=== PATIENT | male | born 1950 | race Caucasian/White ===

== ENCOUNTER 2017-01-10 15:30 | Emergency (ER) | payer BC ==
[2017-01-10 15:35] VITALS: BP 155/89; PULSE 65; RESP 16; TEMP 98.2; O2SAT 98
--- NOTE | 2017-01-10 15:48 | EDPHY ---
H & P Stated Complaint: fish hook in R fifth finger Time Seen by Provider: 01/10/17 15:38 HPI/ROS: CHIEF COMPLAINT: [place] in finger HISTORY OF PRESENT ILLNESS: Patient is a 66-year-old man who comes to emergency department complaining of a puncture wound to left little finger he sustained by a fishhook just prior to arrival. The jayy is in his finger. He denies other injuries. Does not through and through. It does not involve the nail bed feet it is over the fat pad of the distal phalanx. REVIEW OF SYSTEMS: Constitutional: denies: chills, fever, recent illness, recent injury EENTM: denies: blurred vision, double vision, nose congestion Respiratory: denies: cough, shortness of breath Cardiac: denies: chest pain, irregular heart rate, lightheadedness, palpitations Gastrointestinal/Abdominal: denies: abdominal pain, diarrhea, nausea, vomiting, blood streaked stools Genitourinary: denies: dysuria, frequency, hematuria, pain Musculoskeletal: denies: joint pain, muscle pain Skin: See HPI Neurological: denies: headache, numbness, paresthesia, tingling, dizziness, weakness Hematologic/Lymphatic: denies: blood clots, easy bleeding, easy bruising Immunologic/allergic: denies: HIV/AIDS, transplant EXAM: GENERAL: Well-appearing, well-nourished and in no acute distress. HEAD: Atraumatic, normocephalic. EYES: Pupils equal round and reactive to light, extraocular movements intact, sclera anicteric, conjunctiva are normal. ENT: TMs normal, nares patent, oropharynx clear without exudates. Moist mucous membranes. NECK: Normal range of motion, supple without lymphadenopathy or JVD. LUNGS: Breath sounds clear to auscultation bilaterally and equal. No wheezes rales or rhonchi. HEART: Regular rate and rhythm without murmurs, rubs or gallops. ABDOMEN: Soft, nontender, normoactive bowel sounds. No guarding, no rebound. No masses appreciated. BACK: No CVA tenderness, no spinal tenderness, step-offs or deformities EXTREMITIES: [place] puncture into the distal phalanx of the is right 5th finger. Into the fat pad. Normal function and capillary refill. Normal range of motion, no pitting or edema. No clubbing or cyanosis. NEUROLOGICAL: Cranial nerves II through XII grossly intact. Normal speech, normal gait. 5/5 strength, normal movement in all extremities, normal sensation PSYCH: Normal mood, normal affect. SKIN: Warm, dry, normal turgor, no visible rashes or lesions. Source: Patient Exam Limitations: No limitations - Personal History Current Tetanus/Diphtheria Vaccine: Yes Current Tetanus Diphtheria and Acellular Pertussis (TDAP): Yes Tetanus Vaccine Date: 2012 - Medical/Surgical History Hx Asthma: No Hx Chronic Respiratory Disease: No Hx Diabetes: No Hx Cardiac Disease: No Hx Renal Disease: No Hx Cirrhosis: No Hx Alcoholism: No Hx HIV/AIDS: No Hx Splenectomy or Spleen Trauma: No Other PMH: htn - Family History Significant Family History: No pertinent family hx - Social History Smoking Status: Never smoked Alcohol Use: Sober Drug Use: None Constitutional: Initial Vital Signs Temperature (C) 36.8 C 01/10/17 15:33 Heart Rate 65 01/10/17 15:33 Respiratory Rate 16 01/10/17 15:33 Blood Pressure 155/89 H 01/10/17 15:33 O2 Sat (%) 98 01/10/17 15:33 O2 Delivery Mode Room Air Allergies/Adverse Reactions: No Known Allergies Allergy (Unverified 01/10/17 15:33) Home Medications: Medication Instructions Recorded Losartan Potassium 01/10/17 Tramadol HCl 01/10/17 Medical Decision Making Procedures: [place] removal: The patient's finger was anesthetized with bupivacaine in a digital block. Under sterile conditions an 18 gauge needle was used to cover the jayy and the hook was removed. The patient tolerated the procedure well. The wound was then cleaned and dressed with antibiotic ointment and dressings. ED Course/Re-evaluation: Patient tolerated the procedure well. He is grateful. He declines further workup or testing. - Data Points Laboratory Results: Partial list of the Differential diagnosis considered include but were not limited to; puncture wound, foreign body and although unlikely based on the history and physical exam, I also considered fracture, nerve injury, vascular injury. I discussed these differential diagnoses and the plan with the patient as well as the usual and expected course. The patient understands that the diagnosis is provisional and that in medicine we are not always correct and that further workup is often warranted. Usual and customary warnings were given. All of the patient's questions were answered. The patient was instructed to return to the emergency department should the symptoms at all worsen or return, otherwise to followup with the physician as we discussed. Departure - Departure Disposition: Home, Routine, Self-Care Clinical Impression: [place] injury to finger Qualifiers: Encounter type: initial encounter Laterality: right Qualified Code(s): S69.91XA - Unspecified injury of right wrist, hand and finger(s), initial encounter Condition: Fair Instructions: Puncture Wound (ED) Referrals: DARIUS THORPE [Other] - As per Instructions
[2017-01-10] MEDS ORDERED: TDAP ADULT 0.5 ML INJ (BOOSTRIX) IM ONE (16:06)
== END 2017-01-10 16:20 | disposition home or self-care (01) ==
PROC: 3E0T3BZ Introduction of Anesthetic Agent into Peripheral Nerves and Plexi, Percutaneous Approach (ICD-10-PCS; principal; 2017-01-10)
DX: S61.237A Puncture wound without foreign body of left little finger without damage to nail, initial encounter (principal); I10 Essential (primary) hypertension; Z23 Encounter for immunization; X58.XXXA Exposure to other specified factors, initial encounter

== ENCOUNTER 2017-03-05 11:17 | Emergency (ER) | payer BC ==
[2017-03-05 11:21] VITALS: RESP 16; TEMP 98.1; O2SAT 97
--- NOTE | 2017-03-05 11:30 | EDPHY ---
H & P Stated Complaint: Chest pressure, SOB ~ 1 wk Time Seen by Provider: 03/05/17 11:30 HPI/ROS: CHIEF COMPLAINT: Lower chest pressure, occasional dyspnea, fatigue, upper abdominal pain HISTORY OF PRESENT ILLNESS: The patient presents the ED with complaints of lower chest pressure, occasional dyspnea, fatigue and upper abdominal pain. The patient has been dealing with the symptoms for several months. He 1st began experiencing them while living in [place]. At that point time he reportedly had a stress test, nuclear stress test, extensive laboratory testing and gallbladder ultrasound all of which were negative. The patient was treated with Protonix for a short period of time which he stopped taking. He attributed his symptoms to stress. The patient reportedly retired from his job that and subsequently has moved to [place]. He has continued to deal with the symptoms episodically. He has attributed them to possible altitude affect. After a slightly worse acute exacerbation over the past week he decided to seek care today. The patient currently complains of a lower chest discomfort which is bilateral in nature. The patient complains of mild dyspnea which is not pleuritic. He denies asymmetric calf pain or swelling. The patient denies any history of exertional chest pain or shortness of breath. The patient denies additional acute complaints. The patient does have a history of hypertension. REVIEW OF SYSTEMS: A comprehensive 10 point review of systems is otherwise negative aside from elements mentioned in the history of present illness. - Personal History Current Tetanus Diphtheria and Acellular Pertussis (TDAP): Yes Tetanus Vaccine Date: 2012 - Medical/Surgical History Hx Asthma: No Hx Chronic Respiratory Disease: No Hx Diabetes: No Hx Cardiac Disease: No Hx Renal Disease: No Hx Cirrhosis: No Hx Alcoholism: No Hx HIV/AIDS: No Hx Splenectomy or Spleen Trauma: No Other PMH: HTN - Social History Smoking Status: Never smoked - Physical Exam Exam: General Appearance: Alert, no distress Eyes: Pupils equal and round no pallor or injection ENT, Mouth: Mucous membranes moist Respiratory: There are no retractions, lungs are clear to auscultation Cardiovascular: Regular rate and rhythm Gastrointestinal: Abdomen is soft and nontender, no masses, bowel sounds normal Neurological: A&O, normal motor function, normal sensory exam, normal cranial nerves Skin: Warm and dry, no rashes Musculoskeletal: Neck is supple nontender Extremities: symmetrical, full range of motion Constitutional: Initial Vital Signs Temperature (C) 36.7 C 03/05/17 11:18 Heart Rate 57 L 03/05/17 11:18 Respiratory Rate 16 03/05/17 11:18 Blood Pressure 162/98 H 03/05/17 11:18 O2 Sat (%) 97 03/05/17 11:18 O2 Delivery Mode Room Air Allergies/Adverse Reactions: No Known Allergies Allergy (Unverified 01/10/17 15:33) Home Medications: Medication Instructions Recorded Losartan Potassium 01/10/17 TESTOSTERONE [Androgel 1.62% pump] 03/05/17 Medical Decision Making - Diagnostics EKG Interpretation: EKG: Complete interpretation has been separately recorded in the [employer] archive. Summary impression: Sinus rhythm, rate 53 Imaging Results: Imaging Impressions Chest X-Ray 03/05/17 11:55 Impression: Possible airways disease. No evidence for cardiac decompensation. ED Course/Re-evaluation: The patient presents to the emergency department with several symptoms including lower chest discomfort, upper abdominal discomfort, mild dyspnea and lightheadedness. The patient has had these symptoms occurring intermittently for the past several months. The patient has had fairly extensive workup today including a unremarkable gallbladder ultrasound, a treadmill stress test and nuclear stress test by his report. The patient had mildly worsening symptoms today. The patient has no risk factors for coronary artery disease. The patient has no risk factors for thromboembolic disease. The patient's D-dimer test is negative which I feel adequately excludes pulmonary embolism. The patient's EKG and troponin continued to be normal. The patient was noted to have a slightly elevated creatinine of 2.1. I have referred the patient to our on-call data analytics analyst for further evaluation of this condition. The patient tells me this has been elevated in the past he is uncertain what his baseline is. He will contact his regular primary care provider in [place] to follow up on this today. At this point time I do feel the patient can be discharged home. My clinical suspicion for acute coronary syndrome is low. Given at the patient has had a negative nuclear stress test within the past several months I feel it is reasonable to have him follow up with Cardiology as an outpatient. The patient has been instructed to return to the ED for markedly worsening symptoms or other concerns. Differential Diagnosis: Differential diagnosis considered includes arrhythmia, pulmonary embolism, metabolic abnormality, myocardial infarction, pneumonia, pneumothorax - Data Points Laboratory Results: Laboratory Results 03/05/17 11:35 03/05/17 11:35 03/05/17 03/05/17 03/05/17 11:35 11:35 11:35 WBC 7.18 10^3/uL 10^3/uL (3.80-9.50) RBC 5.49 10^6/uL 10^6/uL (4.40-6.38) Hgb 13.7 g/dL g/dL (13.7-17.5) Hct 42.4 % % (40.0-51.0) MCV 77.2 fL L fL (81.5-99.8) MCH 25.0 pg L pg (27.9-34.1) MCHC 32.3 g/dL L g/dL (32.4-36.7) RDW 15.8 % H % (11.5-15.2) Plt Count 237 10^3/uL 10^3/uL (150-400) MPV 9.7 fL fL (8.7-11.7) Neut % (Auto) 64.6 % % (39.3-74.2) Lymph % (Auto) 24.7 % % (15.0-45.0) [place] % (Auto) 9.2 % % (4.5-13.0) Eos % (Auto) 0.6 % % (0.6-7.6) Baso % (Auto) 0.8 % % (0.3-1.7) Nucleat RBC Rel Count 0.0 % % (0.0-0.2) Absolute Neuts (auto) 4.64 10^3/uL 10^3/uL (1.70-6.50) Absolute Lymphs (auto) 1.77 10^3/uL 10^3/uL (1.00-3.00) Absolute Monos (auto) 0.66 10^3/uL 10^3/uL (0.30-0.80) Absolute Eos (auto) 0.04 10^3/uL 10^3/uL (0.03-0.40) Absolute Basos (auto) 0.06 10^3/uL 10^3/uL (0.02-0.10) Absolute Nucleated RBC 0.00 10^3/uL 10^3/uL (0-0.01) Immature Gran % 0.1 % % (0.0-1.1) Immature Gran # 0.01 10^3/uL 10^3/uL (0.00-0.10) D-Dimer 0.41 ug/mLFEU ug/mLFEU (0.00-0.50) Sodium 136 mEq/L mEq/L (134-144) Potassium 3.7 mEq/L mEq/L (3.5-5.2) Chloride 101 mEq/L mEq/L (97-110) Carbon Dioxide 25 mEq/l mEq/l (22-31) Anion Gap 10 mEq/L mEq/L (8-16) BUN 18 mg/dL mg/dL (7-23) Creatinine 2.1 mg/dL H mg/dL (0.7-1.3) Estimated GFR 32 Glucose 94 mg/dL mg/dL (70-100) Calcium 9.2 mg/dL mg/dL (8.5-10.4) Troponin I < 0.012 ng/mL ng/mL (0.000-0.034) Departure - Departure Disposition: Home, Routine, Self-Care Clinical Impression: Chest pain, Elevated serum creatinine Condition: Good Instructions: Chest Pain (ED) Additional Instructions: 1. Please follow up with the primary care provider you have been referred to. 2. Your creatinine which is a measure of your kidney function is abnormal. It is 2.1. Please review with your previous primary medical provider at this is a old condition. In the event that it is new, I recommend following up with Nephrology within the next week. You have been referred to Dr. Viraj Mann to schedule this appointment with. 3. Please follow up with the sales service coordinator you have been referred to for further evaluation of any ongoing symptoms. Your workup in the emergency department today demonstrates no evidence of a heart attack, blood clot or pneumonia. Referrals: Homero Dooley MD [Medical Doctor] - As per Instructions Viraj Mann MD [Medical Doctor] - As per Instructions Ramírez Long MD [Medical Doctor] - As per Instructions
--- NOTE | 2017-03-05 11:30 | CPEKG ---
Heart Rate: 53 RR Interval: 1132 P-R Interval: 204 QRSD Interval: 98 QT Interval: 408 QTC Interval: 383 P [place]: 50 QRS [place]: 60 T Wave [place]: 59 EKG Severity - NORMAL ECG - EKG Impression: SINUS RHYTHM Electronically Signed By: Anupam Madrid 05-Mar-2017 13:55:25
[2017-03-05 11:42] LABS: % IMMATURE GRANULYOCYTES 0.1 % (0.0-1.1); ABSOLUTE IMMATURE GRANULOCYTES 0.01 10^3/uL (0.00-0.10); ADD DIFF? NO; ADD MORPH? NO; ADD SCAN? NO; ATYPICAL LYMPHOCYTE FLAG 10 (0-99); FRAGMENT RBC FLAG 0 (0-99); HEMATOCRIT 42.4 % (40.0-51.0); HEMOGLOBIN 13.7 g/dL (13.7-17.5); LEFT SHIFT FLG 0 (0-99); LIPEMIA HEMOLYSIS FLAG 80 (0-99); MEAN CELL HEMOGLOBIN CONCENTR. 32.3 g/dL (32.4-36.7); MEAN CELL VOLUME 77.2 fL (81.5-99.8); MEAN PLATELET VOLUME 9.7 fL (8.7-11.7); PLATELET CLUMPS FLAG 0 (0-99); PLATELET COUNT 237 10^3/uL (150-400); RED BLOOD CELL COUNT 5.49 10^6/uL (4.40-6.38); RED CELL DISTRIBUTION WIDTH 15.8 % (11.5-15.2)
[2017-03-05 11:52] LABS: ANION GAP 10 mEq/L (8-16); CALCIUM 9.2 mg/dL (8.5-10.4); CARBON DIOXIDE 25 mEq/l (22-31); CHLORIDE 101 mEq/L (97-110); GLUCOSE 94 mg/dL (70-100); POTASSIUM 3.7 mEq/L (3.5-5.2); SODIUM 136 mEq/L (134-144)
[2017-03-05 11:58] LABS: CREATININE 2.1 mg/dL (0.7-1.3); GLOMERULAR FILTRATION RATE 32
[2017-03-05 12:03] LABS: TROPONIN I < 0.012 ng/mL (0.000-0.034)
[2017-03-05 14:17] VITALS: BP 132/77; PULSE 54
== END 2017-03-05 14:17 | disposition home or self-care (01) ==
DX: R07.9 Chest pain, unspecified (principal); R79.89 Other specified abnormal findings of blood chemistry; I10 Essential (primary) hypertension

== ENCOUNTER 2017-05-27 19:00 | Emergency (ER) | payer BC ==
--- NOTE | 2017-05-27 19:03 | EDPHY ---
H & P Time Seen by Provider: 05/27/17 19:02 HPI/ROS: CHIEF COMPLAINT: Headache, dyspnea HISTORY OF PRESENT ILLNESS: The patient presents to the ED after he developed an acute headache and mild dyspnea after using cocaine at 1 o'clock this afternoon. The patient reports he uses this drug sporadically every 3 months. The patient does have a history of hypertension. The patient denies any focal numbness or weakness. The patient denies acute chest pain. The patient did call paramedics because he was feeling poorly. He was given Valium prior to arrival , and is now feeling somewhat somnolent. He states his dyspnea has improved. He currently complains of a 6/10 headache. The patient was in the emergency department for evaluation of chest pain and shortness of breath in February of this year. At that point time he had a nonischemic EKG. The patient reported to me he has had a nuclear stress test which was negative within the past year. REVIEW OF SYSTEMS: A comprehensive 10 point review of systems is otherwise negative aside from elements mentioned in the history of present illness. Source: Patient Exam Limitations: No limitations - Personal History Tetanus Vaccine Date: 2012 - Medical/Surgical History Hx Asthma: No Hx Chronic Respiratory Disease: No Hx Diabetes: No Hx Cardiac Disease: No Hx Renal Disease: No Hx Cirrhosis: No Hx Alcoholism: No Hx HIV/AIDS: No Hx Splenectomy or Spleen Trauma: No Other PMH: HTN - Social History Smoking Status: Never smoked - Physical Exam Exam: General Appearance: Alert, no distress Eyes: Pupils equal and round no pallor or injection ENT, Mouth: Mucous membranes moist Respiratory: There are no retractions, lungs are clear to auscultation Cardiovascular: Regular rate and rhythm Gastrointestinal: Abdomen is soft and nontender, no masses, bowel sounds normal Neurological: A&O, normal motor function, normal sensory exam, normal cranial nerves Skin: Warm and dry, no rashes Musculoskeletal: Neck is supple nontender Extremities: symmetrical, full range of motion Constitutional: Initial Vital Signs Temperature (C) 36.6 C 05/27/17 19:03 Heart Rate 68 05/27/17 19:03 Respiratory Rate 12 05/27/17 19:03 Blood Pressure 143/87 H 05/27/17 19:03 O2 Sat (%) 91 L 05/27/17 19:03 O2 Delivery Mode Room Air O2 (L/minute) 2 Allergies/Adverse Reactions: No Known Allergies Allergy (Verified 05/27/17 19:08) Home Medications: Medication Instructions Recorded Losartan Potassium 01/10/17 TESTOSTERONE [Androgel 1.62% pump] 03/05/17 Prilosec 05/27/17 Xanax 05/27/17 amLODIPine/ATORVASTATIN 05/27/17 Medical Decision Making - Diagnostics EKG Interpretation: EKG: Complete interpretation has been separately recorded in the [employer] archive. Summary impression: Sinus rhythm, rate 64 Imaging Results: Imaging Impressions Chest X-Ray 05/27/17 19:03 Impression: 1. Decreased inspiration with compressive changes at the lung bases more prominent on the left. Rule out developing infiltrate or aspiration left lower lobe. Head CT 05/27/17 19:40 Impression: There is no acute intracranial abnormality identified on this unenhanced CT evaluation. If there is further clinical concern regarding the patient's symptoms, MR imaging is suggested, if not otherwise contraindicated. Findings were discussed with Aliya Faust PA-C, who will convey the information to Anupam Madrid MD at 20:49, on 05/27/2017. ED Course/Re-evaluation: The patient presents to the ED with complaints of a 6/10 headache after using cocaine earlier today. The patient did report mild associated shortness of breath. The patient was noted to be normotensive upon arrival. His initial EKG demonstrates no acute ischemic changes. The patient's chest x-ray demonstrates some atelectasis at the lung base. The patient was taken for a noncontrast head CT scan given his complaints of acute headache which demonstrated no evidence of intracranial hemorrhage. I re-evaluated the patient at 9:20 p.m.. The patient tells me his headache has resolved however he has developed a very vague 2/10 chest pressure. Repeat EKG is also been ordered. Repeat EKG demonstrates no ongoing ST segment changes. I re-evaluated the patient at 10:00 p.m.. He is currently pain-free. The patient has been under the care of Dr. Willson from Cardiology. The patient would like to be discharged home. He was offered admission to the hospital in the setting of his cocaine induced chest pain. He does understand return to the ED immediately for any recurrent chest pain, difficulty breathing or other concerns. All the patient's chest x-ray acquired the possibility of pneumonia he has no clinical symptoms consistent with this. The patient will be discharged and instructed to follow up with his regular report clerk. The patient is quite concrete that he plans never to use cocaine again. He denies any suicidal or homicidal ideation. He denies any symptoms of ongoing anxiety or dyspnea. The patient denies any symptoms of an acute headache and is noted to have a normal neurologic exam. Differential Diagnosis: Differential diagnosis considered includes intracranial hemorrhage, congestive heart failure, myocardial infarction - Data Points Laboratory Results: Laboratory Results 05/27/17 19:27 05/27/17 19:27 05/27/17 05/27/17 19:27 19:27 WBC 8.88 10^3/uL 10^3/uL (3.80-9.50) RBC 5.71 10^6/uL 10^6/uL (4.40-6.38) Hgb 13.3 g/dL L g/dL (13.7-17.5) Hct 42.2 % % (40.0-51.0) MCV 73.9 fL L fL (81.5-99.8) MCH 23.3 pg L pg (27.9-34.1) MCHC 31.5 g/dL L g/dL (32.4-36.7) RDW 18.9 % H % (11.5-15.2) Plt Count 241 10^3/uL 10^3/uL (150-400) MPV 10.5 fL fL (8.7-11.7) Neut % (Auto) 76.0 % H % (39.3-74.2) Lymph % (Auto) 14.6 % L % (15.0-45.0) [place] % (Auto) 8.7 % % (4.5-13.0) Eos % (Auto) 0.0 % L % (0.6-7.6) Baso % (Auto) 0.5 % % (0.3-1.7) Nucleat RBC Rel Count 0.0 % % (0.0-0.2) Absolute Neuts (auto) 6.75 10^3/uL H 10^3/uL (1.70-6.50) Absolute Lymphs (auto) 1.30 10^3/uL 10^3/uL (1.00-3.00) Absolute Monos (auto) 0.77 10^3/uL 10^3/uL (0.30-0.80) Absolute Eos (auto) 0.00 10^3/uL L 10^3/uL (0.03-0.40) Absolute Basos (auto) 0.04 10^3/uL 10^3/uL (0.02-0.10) Absolute Nucleated RBC 0.00 10^3/uL 10^3/uL (0-0.01) Immature Gran % 0.2 % % (0.0-1.1) Immature Gran # 0.02 10^3/uL 10^3/uL (0.00-0.10) Sodium 139 mEq/L mEq/L (134-144) Potassium 3.9 mEq/L mEq/L (3.5-5.2) Chloride 102 mEq/L mEq/L (97-110) Carbon Dioxide 23 mEq/l mEq/l (22-31) Anion Gap 14 mEq/L mEq/L (8-16) BUN 16 mg/dL mg/dL (7-23) Creatinine 1.4 mg/dL H mg/dL (0.7-1.3) Estimated GFR 51 Glucose 134 mg/dL H mg/dL (70-100) Calcium 9.2 mg/dL mg/dL (8.5-10.4) Troponin I < 0.012 ng/mL ng/mL (0.000-0.034) Departure - Departure Disposition: Home, Routine, Self-Care Clinical Impression: Shortness of breath, Headache, Chest pain Condition: Good Instructions: Chest Pain (ED) Additional Instructions: 1. Based upon the testing done in the Emergency Department today we see no evidence of a heart attack. 2. We are unable to fully exclude coronary artery disease based upon the testing available in the Emergency Department. 3. For this reason, we would like you to be seen by cardiology for consideration of additional testing within the next 3 days. 4. Please contact the report clerk you have been referred to schedule this appointment as soon as possible. Their offices are typically open from 8:30am- 5pm M-F. 5. Please return to the Emergency Department immediately for any recurrent chest pain, difficulty breathing or other concerns. Referrals: Krystle Willson MD [Medical Doctor] - As per Instructions
--- NOTE | 2017-05-27 19:21 | CPEKG ---
Heart Rate: 64 RR Interval: 938 P-R Interval: 200 QRSD Interval: 96 QT Interval: 404 QTC Interval: 417 P [place]: 26 QRS [place]: 14 T Wave [place]: 28 EKG Severity - ABNORMAL ECG - EKG Impression: SINUS RHYTHM EKG Impression: LEFT ATRIAL ABNORMALITY Electronically Signed By: Anupam Madrid 27-May-2017 20:08:25
[2017-05-27 19:39] LABS: % IMMATURE GRANULYOCYTES 0.2 % (0.0-1.1); ABSOLUTE IMMATURE GRANULOCYTES 0.02 10^3/uL (0.00-0.10); ADD DIFF? NO; ADD MORPH? NO; ADD SCAN? NO; ATYPICAL LYMPHOCYTE FLAG 0 (0-99); FRAGMENT RBC FLAG 20 (0-99); HEMATOCRIT 42.2 % (40.0-51.0); HEMOGLOBIN 13.3 g/dL (13.7-17.5); LEFT SHIFT FLG 0 (0-99); LIPEMIA HEMOLYSIS FLAG 80 (0-99); MEAN CELL HEMOGLOBIN 23.3 pg (27.9-34.1); MEAN CELL HEMOGLOBIN CONCENTR. 31.5 g/dL (32.4-36.7); MEAN CELL VOLUME 73.9 fL (81.5-99.8); MEAN PLATELET VOLUME 10.5 fL (8.7-11.7); PLATELET CLUMPS FLAG 10 (0-99); PLATELET COUNT 241 10^3/uL (150-400); RED BLOOD CELL COUNT 5.71 10^6/uL (4.40-6.38); RED CELL DISTRIBUTION WIDTH 18.9 % (11.5-15.2)
[2017-05-27 19:48] LABS: ANION GAP 14 mEq/L (8-16); CALCIUM 9.2 mg/dL (8.5-10.4); CARBON DIOXIDE 23 mEq/l (22-31); CHLORIDE 102 mEq/L (97-110); CREATININE 1.4 mg/dL (0.7-1.3); GLOMERULAR FILTRATION RATE 51; GLUCOSE 134 mg/dL (70-100); POTASSIUM 3.9 mEq/L (3.5-5.2); SODIUM 139 mEq/L (134-144)
[2017-05-27 20:02] LABS: TROPONIN I < 0.012 ng/mL (0.000-0.034)
[2017-05-27 20:42] VITALS: RESP 16; O2SAT 97
--- NOTE | 2017-05-27 21:32 | CPEKG ---
Heart Rate: 59 RR Interval: 1017 P-R Interval: 208 QRSD Interval: 102 QT Interval: 408 QTC Interval: 405 P [place]: 29 QRS [place]: 20 T Wave [place]: 27 EKG Severity - BORDERLINE ECG - EKG Impression: SINUS RHYTHM Electronically Signed By: Anupam Madrid 27-May-2017 21:38:31
[2017-05-27 21:58] VITALS: BP 131/78; PULSE 63; TEMP 98.2
== END 2017-05-27 21:56 | disposition home or self-care (01) ==
LOC: EDUNIT#
DX: R06.00 Dyspnea, unspecified (principal); R51 Headache; R07.9 Chest pain, unspecified; I10 Essential (primary) hypertension

== ENCOUNTER → 2017-07-01 | Outpatient (CLI) | payer BC | LOC: FCPNEURO 21:30 | PROVIDERS: ATTEND Student in an Organized Health Care Education/Training Program | DX: G47.33 Obstructive sleep apnea (adult) (pediatric) (principal) ==

== ENCOUNTER 2017-07-07 17:50 | Emergency (ER) | payer BC ==
--- NOTE | 2017-07-07 18:14 | EDPHY ---
H & P Stated Complaint: increasing hypertension with mckeon and 1hr visual disturbance at 10 am HPI/ROS: CHIEF COMPLAINT: Headache, vision changes, elevated BP HISTORY OF PRESENT ILLNESS: The patient is a 67 y/o male with a history of hypertension and cocaine occasional use complaining of vision changes onset 11: 00, about 7 hours ago, and subsequent mild headache with concurrent elevated blood pressure. He reports a BP of "150/90 is not unusual" for him and he takes losartan and amlodipine typically at night to manage this. Today he woke up and walked out to his car around 11:00 AM. He developed sudden transient blurry vision that resolved after rubbing his eyes, but then was followed by flashes and "misalignment" in his vision that was worse on the left side. This lasted for about 1.5 hours and was followed by a mild headache. He measured his BP at 150/105 and decided to take 5mg amlodipine around 13:00. He checked his BP again and found it trending up around 170 systolic so he took 0.25mg alprazolam. He did not take anything for his headache and is not currently experiencing headache or visual changes. He denies chest pain, nausea, worse- than-baseline dyspnea, fever, weakness, paresthesias, or other complaints. REVIEW OF SYSTEMS: A ten point review of systems was performed and is negative with the exception of the items mentioned in the HPI. Past medical history: Hypertension, cocaine use Past surgical history: Denies Family history: Noncontributory Social history: Sporadic cocaine use. Prior [employer] for [employer]. Moved here from [place] last summer. Nonsmoker. Couple drinks of alcohol per week. Reviewed prior medical records including ED visit 05/27/17 for similar symptoms following cocaine use. General Appearance: Alert. Vital signs reviewed. Blood pressure 167/98 at triage, 147/92 at discharge. Eyes: Pupils equal and round, no conjunctival injection, no discharge. Anicteric. ENT, Mouth: Mucous membranes are moist, no oropharyngeal erythema or edema. Neck: No lymphadenopathy, supple. Respiratory: Lungs are clear to auscultation; no wheezes, rales, or rhonchi. Cardiovascular: Regular rate and rhythm; no murmur, rub, or gallop. Gastrointestinal: Abdomen is soft and nontender, no masses or organomegaly, bowel sounds normal. Skin: Warm and dry, no rashes on exposed skin, normal color. Back: Nontender to palpation over the thoracolumbar spine. No CVAT. Extremities: No lower extremity edema, no calf tenderness or swelling. Neurological: Alert and oriented. Moving all four extremities easily and equally. Cranial nerves II through XII are examined and are intact (visual acuity not tested). Strength is 5 over 5 bilaterally with testing of all major motor groups. Sensation is intact to light touch over all 4 extremities. Deep tendon reflexes are 2+ in the biceps and knees bilaterally. Gait is normal. [id number] is performed accurately. Psychiatric: Normal affect. Source: Patient (CHIEF COMPLAINT:HISTORY OF PRESENT ILLNESS:REVIEW OF SYSTEMS:A ten point review of systems was performed and is negative with the exception of the items mentioned in the HPI.Past medical history:Past surgical history: Family history:Social history:General Appearance: Alert. Vital signs reviewed. *Eyes: Pupils equal and round, no conjunctival injection, no discharge. Anicteric.ENT, Mouth: Mucous membranes are moist, no oropharyngeal erythema or edema.Neck: No lymphadenopathy, supple.Respiratory: Lungs are clear to auscultation; no wheezes, rales, or rhonchi.Cardiovascular: Regular rate and rhythm; no murmur, rub, or gallop.Gastrointestinal: Abdomen is soft and nontender, no masses or organomegaly, bowel sounds normal.Skin: Warm and dry, no rashes on exposed skin, normal color.Back: Nontender to palpation over the thoracolumbar spine. No CVAT.Extremities: No lower extremity edema, no calf tenderness or swelling.Neurological: Alert and oriented. Moving all four extremities easily and equally.Cranial nerves II through XII are examined and are intact (visual acuity not tested). Strength is 5 over 5 bilaterally with testing of all major motor groups. Sensation is intact to light touch over all 4 extremities. Deep tendon reflexes are 2+ in the biceps and knees bilaterally. Gait is normal. [id number] is performed accurately.Psychiatric: Normal affect.) - Personal History Current Tetanus/Diphtheria Vaccine: Yes Tetanus Vaccine Date: 2012 - Medical/Surgical History Hx Asthma: No Hx Chronic Respiratory Disease: No Hx Diabetes: No Hx Cardiac Disease: Yes Hx Renal Disease: No Hx Cirrhosis: No Hx Alcoholism: No Hx HIV/AIDS: No Hx Splenectomy or Spleen Trauma: No Other PMH: HTN/leaky valve - Social History Smoking Status: Never smoked Constitutional: Initial Vital Signs Temperature (C) 36.4 C 07/07/17 18:02 Heart Rate 61 07/07/17 18:02 Respiratory Rate 18 07/07/17 18:02 Blood Pressure 167/98 H 07/07/17 18:02 O2 Sat (%) 98 07/07/17 18:02 O2 Delivery Mode Room Air Allergies/Adverse Reactions: No Known Allergies Allergy (Verified 07/07/17 18:01) Home Medications: Medication Instructions Recorded Losartan Potassium 01/10/17 TESTOSTERONE [Androgel 1.62% pump] 03/05/17 Prilosec 05/27/17 Xanax 05/27/17 amLODIPine/ATORVASTATIN 05/27/17 Medical Decision Making ED Course/Re-evaluation: This is a 67 y/o male with a history of hypertension who presents after what sounds like an ocular migraine 7 hours ago with subsequent mild headache and hypertension. With questioning, he can recall a similar episode in the past. The vision symptoms have completely resolved, as has the headache. No illicit drug use recently. He has since taken additional doses of his antihypertensives and his BP here is trending below 150 systolic. He has a normal neuro exam. I do not suspect acute intracranial process requiring imaging at this time; do not suspect stroke. No evidence of hypertensive urgency or emergency at the time of my evaluation. Plan for IV, labs, and EKG. The 12 lead EKG was interpreted by myself. See hard copy and/or "tracemaster" electronic copy for interpretation. No acute ischemic changes. 1935: BP 143/98. I find no evidence of end-organ damage related hypertension. His blood pressure remains elevated and I am recommending follow-up for further blood pressure evaluations/control. Reassessed patient and discussed work up. He is feeling well and ready to go home. Exam remains unchanged. He will be discharged home in good condition with referral to strategic solutions consultant at his request. Return precautions discussed. He is comfortable with this plan. Differential Diagnosis: Headache including but not limited to subarachnoid hemorrhage, migraine headache , tension headache and infectious causes such as meningitis, pharyngitis and sinusitis. - Data Points Laboratory Results: Laboratory Results 07/07/17 18:20 07/07/17 18:20 Departure - Departure Disposition: Home, Routine, Self-Care Clinical Impression: Hypertension Qualifiers: Hypertension type: essential hypertension Qualified Code(s): I10 - Essential ( primary) hypertension Condition: Good Instructions: Chronic Hypertension (ED), Ocular Migraine (ED) Additional Instructions: 1. Continue your normal blood pressure medication dosing as planned. 2. Follow up with your primary care provider in the next 2-3 days. 3. Return to the ED for severe headache, vision changes, weakness or numbness on one side of your body, or other worsening of condition. 4. You've been referred to Dr. Willson, cardiology, to establish care with as well. Referrals: MALATHI KIM [Primary Care Provider] - As per Instructions Krystle Willson MD [Medical Doctor] - As per Instructions Report Scribed for: Dulce Maria Whelan Report Scribed by: Sadia Boyd Date of Report: 07/07/17 Time of Report: 18:29 Physician Review and Approval Statement: 07/07/17 18:14 Portions of this note were transcribed by the medical attendant. I, Dr. Dulce Maria Whelan, personally performed the history, physical exam, and medical decision- making; and confirmed the accuracy of the information in the transcribed note.
--- NOTE | 2017-07-07 19:14 | CPEKG ---
Heart Rate: 52 RR Interval: 1154 P-R Interval: 224 QRSD Interval: 96 QT Interval: 388 QTC Interval: 361 P [place]: 33 QRS [place]: 27 T Wave [place]: 33 EKG Severity - ABNORMAL ECG - EKG Impression: SINUS RHYTHM EKG Impression: FIRST DEGREE AV BLOCK Electronically Signed By: Dulce Maria Whelan 07-Jul-2017 23:21:20
[2017-07-07 19:19] LABS: PLATELET COUNT 257 10^3/uL (150-400)
[2017-07-07 19:37] VITALS: RESP 18
[2017-07-07 20:04] VITALS: BP 147/92; PULSE 56; TEMP 98.1; O2SAT 94
== END 2017-07-07 20:07 | disposition home or self-care (01) ==
DX: I10 Essential (primary) hypertension (principal)